=== PATIENT | male | born 2000 | race Caucasian/White ===

== ENCOUNTER 2021-12-27 12:33 | Emergency (ER) | payer OTHER ==
[2021-12-27] MEDS ORDERED: Ketorolac Tromethamine 30 MG/ML VIAL ONE (13:19)
== END 2021-12-27 13:27 | disposition home or self-care (01) ==
LOC: ERS 12:33
DX: L03.211 Cellulitis of face (principal); K02.9 Dental caries, unspecified
CPT/HCPCS: 94760; 96372; J1885